=== PATIENT | female | born 1970 | race American Indian/Alaskan Native ===

== ENCOUNTER 2016-12-14 09:28 | Emergency (ER) | payer OTHER ==
[2016-12-14] MEDS ORDERED: NORCO 5/325 PO ONE (12:15)
[2016-12-14] MEDS ORDERED: ZOFRAN ODT PO ONE (12:15)
[2016-12-14] MEDS ORDERED: XYLOCAINE 1% 20 mL INFILTRATI ONE (12:15)
[2016-12-14] MEDS ORDERED: NACL 0.9% IR ONE (12:15)
[2016-12-14] MEDS ORDERED: CLEOCIN IM ONE (12:16)
[2016-12-14] MEDS ORDERED: FLAGYL PO ONE (12:18)
--- NOTE | 2016-12-14 12:23 | Emergency Department Report ---
ED General Adult HPI - General Chief complaint: Skin/Abscess/Foreign Body Stated complaint: UPPER RT THIGH INFECTION Time Seen by Provider: 12/14/16 12:00 Source: patient Mode of arrival: Ambulatory Limitations: No Limitations - History of Present Illness Initial comments: PT c/o R thigh infection since Saturday. PT states she is not sure if it is related but she has had thin, white, itchy, vaginal discharge and was dx yesterday with hpv, trich and BV at [facility] office. PT states her [facility] would not give her the prescriptions (Keflex and flagyl) the doctor wrote because she owed a balance of $20. PT states she has tried home remedies for the abscess but it has progressively gotten worse. PT state her pain is 10/10 and she came to the ED this morning because she could not sleep last night due to the pain. PT states she can not take NSAIDS due to her gastric surgery. PT states she moved from [place] in September and has not yet established a PCP. PT states she did not take her bp medication today. MD Complaint: abscess -: Gradual, week(s) (one ) Location: right, lower extremity Severity scale (0 -10): 10 Consistency: constant Improves with: none (pt has tried boil no and egg whites ) Worsens with: movement, other (palpation ) Associated Symptoms: denies other symptoms. denies: fever/chills, headaches, loss of appetite, nausea/vomiting Treatments Prior to Arrival: none - Related Data Previous Rx's Medication Instructions Recorded Last Taken Type Clindamycin [Clindamycin CAP] 300 mg PO Q8H #30 cap 12/14/16 Unknown Rx HYDROcodone/APAP 5-325 [[place] 1 each PO Q6HR PRN #10 tablet 12/14/16 Unknown Rx 5/325] Allergies Allergy/AdvReac Type Severity Reaction Status Date / Time morphine Allergy Rash Verified 12/14/16 09:57 ED Review of Systems ROS: Stated complaint: UPPER RT THIGH INFECTION Other details as noted in HPI Comment: All other systems reviewed and negative Constitutional: denies: chills, fever Cardiovascular: denies: chest pain Gastrointestinal: denies: abdominal pain, nausea, vomiting Genitourinary: discharge (has paperwork from [facility] - dx with hpv, trich, bv ) Neurological: denies: headache ED Past Medical Hx - Past Medical History Hx Hypertension: Yes - Surgical History Additional Surgical History: Bariatric - Social History Smoking Status: Current Every Day Smoker Substance Use Type: Alcohol - Medications Home Medications: Home Medications Medication Instructions Recorded Confirmed Last Taken Type Clindamycin [Clindamycin CAP] 300 mg PO Q8H #30 cap 12/14/16 Unknown Rx HYDROcodone/APAP 5-325 [[place] 1 each PO Q6HR PRN #10 tablet 12/14/16 Unknown Rx 5/325] ED Physical Exam - General Limitations: No Limitations General appearance: alert, in no apparent distress - Head Head exam: Present: atraumatic, normocephalic - Eye Eye exam: Present: normal appearance. Absent: scleral icterus, conjunctival injection - ENT ENT exam: Present: normal exam, normal external ear exam - Neck Neck exam: Present: normal inspection, full ROM - Respiratory Respiratory exam: Present: normal lung sounds bilaterally. Absent: respiratory distress - Cardiovascular Cardiovascular Exam: Present: regular rate, normal rhythm - GI/Abdominal GI/Abdominal exam: Present: soft. Absent: tenderness - Extremities Exam Extremities exam: Present: tenderness (to R thigh ) - Expanded Lower Extremity Exam Right Upper Leg exam: Present: tenderness, swelling, erythema (abscess with surrounding cellulitis is noted ) Neuro vascular tendon exam: Present: no vascular compromise Gait: Positive: observed and normal - Back Exam Back exam: Present: normal inspection, full ROM - Neurological Exam Neurological exam: Present: alert, oriented X3 - Psychiatric Psychiatric exam: Present: normal affect, normal mood - Skin Skin exam: Present: warm, dry, intact, erythema, other (2 cm abscess to ant thing, with 10 cm x 6 cm surrounding cellulitis, surrounded by mild erythmea that extends distally. no joint involvemnt of hip or knee noted ) ED Course Vital Signs 12/14/16 12/14/16 12/14/16 09:57 12:54 14:11 Temperature 99.3 F Pulse Rate 80 60 Respiratory 18 18 18 Rate Blood Pressure 186/113 Blood Pressure 173/107 [Right] O2 Sat by Pulse 97 98 Oximetry - Reevaluation(s) Reevaluation #1: 12/14/16 12:27 PT advised to take her bp medication as prescribed and to follow up with PCP for bp recheck. PT aware of plan of care. Reevaluation #2: 12/14/16 14:51 PT tolerated I and D well. PT reports decrease in pain. PT's bp improving after pain control. PT aware she will need to take her bp medication as prescribed. PT aware that she will need to return to the ED in 2 days for packing removal. strict return precautions reviewed PT has paperwork from her [facility] office with dx of trich and BV. PT's been treated with 2 gm Flagyl x 1. PT advised not to scratch at groin as this could cause breaks in skin and lead to the infection spreading. PT verbalizes understanding. - I & D Right Anterior Proximal Thigh Type of Procedure: Complex Site: R ant thigh Blade Size: 11 I & D Procedure: betadine prep, sterile drapes applied, sterile dressing applied , gauze wick placed Progress: skin cleansed with betadine. 4 mls of 1% lidocaine used to anesthetize the area. 11 blade used to make incision. + drainage noted. site flushed and locations broken up with hemostats. 1/4 inch iodoform packing placed and packing covered with sterile non stick gauze. pt tolerated the procedure well. - Pulse Oximetry Interpretation Digit-Finger Initial Pulse Oximetry Readin Actions Taken: none ED Medical Decision Making - Differential Diagnosis abscess, cellulitis, vaginitis Critical Care Time: No Critical care attestation.: If time is entered above; I have spent that time in minutes in the direct care of this critically ill patient, excluding procedure time. ED Disposition Clinical Impression: Abscess or cellulitis of thigh, Hx of trichomoniasis Disposition: DC-01 TO HOME OR SELFCARE Is pt being admited?: No Does the pt Need Aspirin: No Condition: Stable Instructions: Bacterial Vaginosis (ED), Trichomoniasis (ED), Cellulitis (ED), Abscess Incision and Drainage (ED), Abscess (ED) Additional Instructions: Do not take [place] with alcohol. do not drive after taking No alcohol with Flagyl take your bp medication as prescribed follow up with PCP in 3-5 days for bp recheck Return in 2 days for wound recheck/ packing removal. No shaving at this time wash with otc hibiclens If you develop fevers, chills, nausea or vomiting, or the redness on your leg gets worse return to the ED No sex for the next 7 days Prescriptions: Clindamycin [Clindamycin CAP] 300 mg PO Q8H #30 cap HYDROcodone/APAP 5-325 [[place] 5/325] 1 each PO Q6HR PRN #10 tablet PRN Reason: Pain Referrals: PRIMARY CARE, [Primary Care Provider] - 3-5 Days ALEJANDRA GALE MD [Staff Physician] - 3-5 Days [facility] [Outside] - 3-5 Days Forms: Work/School Release Form(ED) Time of Disposition: 15:04
[2016-12-14 14:12] VITALS: BP 173/107
== END 2016-12-14 15:27 | disposition home or self-care (01) ==
LOC: ED 09:28
DX: L02.415 Cutaneous abscess of right lower limb (principal); I10 Essential (primary) hypertension; F17.200 Nicotine dependence, unspecified, uncomplicated; Z88.5 Allergy status to narcotic agent
CPT/HCPCS: 96372; Q0162